=== PATIENT | male | born 1925 | race Caucasian/White ===

== ENCOUNTER → 2016-09-22 | Outpatient (CLI) | payer MEDICARE | LOC: PCVCIMAG 09:54 | PROVIDERS: ATTEND Nuclear Medicine Nuclear Cardiology | DX: I82.502 Chronic embolism and thrombosis of unspecified deep veins of left lower extremity (principal) | CPT/HCPCS: 93925; 93970 ==

== ENCOUNTER → 2016-10-13 | Outpatient (CLI) | payer MEDICARE | END | disposition home or self-care (01) | LOC: PCVCCLINIC 15:56 | PROVIDERS: ATTEND Nuclear Medicine Nuclear Cardiology | DX: I73.9 Peripheral vascular disease, unspecified (principal); I82.409 Acute embolism and thrombosis of unspecified deep veins of unspecified lower extremity; I25.10 Atherosclerotic heart disease of native coronary artery without angina pectoris; I77.9 Disorder of arteries and arterioles, unspecified; I48.2 Chronic atrial fibrillation; I10 Essential (primary) hypertension; I87.2 Venous insufficiency (chronic) (peripheral) | CPT/HCPCS: G0463 ==